=== PATIENT | male | born 2000 | race Caucasian/White ===

== ENCOUNTER 2025-02-24 07:55 | Emergency (ER) | payer OTHER ==
[~2025-02-24] VITALS: Ht 172.7 cm; Wt 70.5 kg
[2025-02-24 08:44] LABS: BASO # 0.0 10^3/uL (0.0-0.2); BASO % 0.4 % (0.0-1.0); EOS # 0.1 10^3/uL (0.0-0.5); EOS % 1.2 % (0.0-3.0); LYMPH # 1.8 10^3/uL (1.5-5.0); LYMPH % 20.1 % (24.0-44.0); MONO # 0.6 10^3/uL (0.0-0.8); MONO % 7.0 % (2.0-8.0); NEUTROPHILS # 6.4 10^3/uL (1.5-8.5); NEUTROPHILS % 70.7 % (36.0-66.0); PLATELET COUNT, AUTOMATED 282 10^3/uL (150-450)
[2025-02-24] MEDS: NS (Normal Saline) 0.9% 1,000 ML IV ONE (08:46)
[2025-02-24 09:14] LABS: CK-MB VALUE MASS 2.5 NG/ML (<3.6); ETHYL ALCOHOL (ETHANOL) < 0.003 % (0.000-0.010)
[2025-02-24 09:16] LABS: CALCIUM LEVEL 8.9 MG/DL (8.5-10.1); CARBON DIOXIDE LEVEL 25 MMOL/L (20-31); CHLORIDE LEVEL 103 MMOL/L (98-107); CPK CREATINE PHOSPHOKINASE 258 U/L (46-171); CREATININE FOR GFR 1.03 MG/DL (0.70-1.30); GLOMERULAR FILTRATION RATE > 90.0 (>60); MAGNESIUM LEVEL 2.1 MG/DL (1.8-2.4); MB/CK RELATIVE INDEX 0.96 (< OR =4); POTASSIUM SERUM 4.1 MMOL/L (3.5-5.1); SODIUM LEVEL 137 MMOL/L (136-145)
[2025-02-24 10:02] LABS: AMPHETAMINES LEVEL URINE NEGATIVE (NEGATIVE); BARBITURATES URINE NEGATIVE (NEGATIVE); BENZODIAZEPINES URINE NEGATIVE (NEGATIVE); CANNABINOIDS URINE NEGATIVE (NEGATIVE); COCAINE METABOLITE URINE NEGATIVE (NEGATIVE); METHADONE URINE NEGATIVE (NEGATIVE); OPIATES URINE NEGATIVE (NEGATIVE); PHENCYCLIDINE URINE NEGATIVE (NEGATIVE)
[2025-02-24] MEDS ORDERED: HOME MED LIST COMPLETE! XX SCH (13:25)
[2025-02-24 14:30] VITALS: BP 121/75; TEMP 97; O2SAT 100
== END 2025-02-24 14:48 | disposition home or self-care (01) ==
LOC: M ED 07:55 → EDBD 07:55 → M ED 14:48
DX: R55 Syncope and collapse (principal); F10.10 Alcohol abuse, uncomplicated; Z87.891 Personal history of nicotine dependence

== ENCOUNTER 2025-05-09 19:06 | Inpatient (IN) | payer OTHER ==
[~2025-05-09] VITALS: Ht 172.7 cm; Wt 70.0 kg
[2025-05-09] MEDS ORDERED: DILT120C78 PO (19:53)
[2025-05-09 20:17] LABS: PLATELET COUNT, AUTOMATED 238 10^3/uL (150-450)
[2025-05-09 20:51] LABS: CK-MB VALUE MASS < 1.0 NG/ML (<3.6)
[2025-05-09 20:52] LABS: ETHYL ALCOHOL (ETHANOL) 0.082 % (0.000-0.010)
[2025-05-09 20:54] LABS: ALT/SGPT 30 U/L (7.0-40); AST/SGOT 27 U/L (<34); CALCIUM LEVEL 9.0 MG/DL (8.5-10.1); CARBON DIOXIDE LEVEL 31 MMOL/L (20-31); CHLORIDE LEVEL 103 MMOL/L (98-107); CREATININE FOR GFR 1.02 MG/DL (0.70-1.30); GLOMERULAR FILTRATION RATE > 90.0 (>60); POTASSIUM SERUM 4.1 MMOL/L (3.5-5.1); SALICYLATE LEVEL < 3.0 MG/DL (<30); SODIUM LEVEL 144 MMOL/L (136-145)
[2025-05-09 20:58] LABS: CPK CREATINE PHOSPHOKINASE 82 U/L (46-171)
[2025-05-09 21:27] LABS: AMPHETAMINES LEVEL URINE NEGATIVE (NEGATIVE); BARBITURATES URINE NEGATIVE (NEGATIVE); BENZODIAZEPINES URINE NEGATIVE (NEGATIVE); COCAINE METABOLITE URINE NEGATIVE (NEGATIVE)
[2025-05-09 21:28] LABS: CANNABINOIDS URINE NEGATIVE (NEGATIVE); METHADONE URINE NEGATIVE (NEGATIVE); OPIATES URINE NEGATIVE (NEGATIVE); PHENCYCLIDINE URINE NEGATIVE (NEGATIVE)
[2025-05-09 22:33] LABS: CK-MB VALUE MASS < 1.0 NG/ML (<3.6)
[2025-05-09 22:39] LABS: CPK CREATINE PHOSPHOKINASE 81 U/L (46-171)
[2025-05-09] MEDS ORDERED: LORazepam 1 MG TAB PO PRN (23:55)
[2025-05-09] MEDS ORDERED: ACETAMINOPHEN 325 MG TAB PO PRN (23:55)
[2025-05-09] MEDS ORDERED: traZODone 50 MG TAB PO PRN (23:55)
[2025-05-09] MEDS ORDERED: MOM 30 ML SUSPENSION UDC PO PRN (23:55)
[2025-05-09] MEDS ORDERED: HALOPERIDOL 5 MG TAB PO PRN (23:55)
[2025-05-09] MEDS ORDERED: IBUPROFEN 400 MG TAB PO PRN (23:55)
[2025-05-09] MEDS ORDERED: MAALOX 30 ML SUSP *UDC PO PRN (23:55)
[2025-05-10] MEDS ORDERED: HOME MED LIST COMPLETE! XX SCH (01:10)
[2025-05-10 05:24] VITALS: BP 140/88; TEMP 97.7; O2SAT 99
[2025-05-10 08:24] VITALS: BP 140/87; TEMP 97.5; O2SAT 97
[2025-05-10 08:26] VITALS: BP 140/87
[2025-05-10] MEDS: MULTIVITAMINS/MINERALS THERAP 1 TAB PO SCH (09:38)
[2025-05-10] MEDS: THIAMINE 100 MG TAB PO SCH (09:38)
[2025-05-10] MEDS: FOLIC ACID 1 MG TAB PO SCH (09:38)
[2025-05-10 15:31] VITALS: BP 136/89; TEMP 98.3; O2SAT 96
[2025-05-10 16:25] VITALS: BP 139/86; TEMP 97.6; O2SAT 97
[2025-05-10 20:00] VITALS: BP 118/65
[2025-05-11 06:00] VITALS: BP 124/86
[2025-05-11 06:22] VITALS: BP 124/86; TEMP 96.7; O2SAT 98
[2025-05-11] MEDS: dilTIAZem 120 MG **CD** CAPSULE PO SCH (14:03)
[2025-05-11 14:12] VITALS: BP 136/82
[2025-05-11 15:44] VITALS: BP 136/82; TEMP 98; O2SAT 98
[2025-05-11 22:09] VITALS: BP 136/82
[2025-05-12] VITALS (7 sets, daily range): BP systolic 123–133; BP diastolic 67–86; TEMP 97.4–97.9; O2SAT 99
[2025-05-13 06:30] VITALS: BP 131/82; TEMP 97.8; O2SAT 98
[2025-05-13 07:51] VITALS: BP 147/76; TEMP 97.5; O2SAT 98
[2025-05-13 07:52] VITALS: BP 147/76
== END 2025-05-13 10:04 | disposition home or self-care (01) | DRG 881 ==
LOC: M ED 19:06 → M PSY 23:52
PROVIDERS: ADMIT Psychiatry & Neurology Neurology; ATTEND Psychiatry & Neurology Neurology
DX: F32.A Depression, unspecified (principal); F41.9 Anxiety disorder, unspecified; F43.20 Adjustment disorder, unspecified; F10.20 Alcohol dependence, uncomplicated; R00.0 Tachycardia, unspecified; E07.89 Other specified disorders of thyroid; Z79.899 Other long term (current) drug therapy